=== PATIENT | female | born 1985 | race Caucasian/White ===

== ENCOUNTER 2019-01-30 09:30 | Inpatient (IN) ==
[2019-01-30] MEDS ORDERED: TYLENOL PO PRN (10:10)
[2019-01-30] MEDS ORDERED: DUONEB (A & A) INH PRN (10:14)
[2019-01-30] MEDS ORDERED: VANCOMYCIN IV PER PHARMACY MISC SCH (10:30)
--- NOTE | 2019-01-30 10:38 | Diag Imaging Result Doc PS360 ---
CHEST-PORTABLE - 01/30/2019 INDICATION: Pneumonia COMPARISON: None FINDINGS: There are moderate alveolar infiltrates in the right upper lobe and right base. Heart size is normal. Pulmonary vascularity is somewhat distended. No pneumothorax or pleural effusion. IMPRESSION: Infiltrates in the right upper lobe and right lung base consistent with pneumonia. Electronically signed by Eleazar Champagne 01/30/2019 10:36 AM
[2019-01-30 11:05] LABS: BASO# 0.11 X1000 (0.0-0.2); BASO% 1.2 % (0.0-0.8); EOS# 0.08 X1000 (0.0-0.7); EOS% 0.9 % (0.0-10.0); HEMATOCRIT 40.1 % (37.0-47.0); IMM GRAN# 0.02 X1000 (0.0-0.04); IMM GRAN% 0.2 % (0.0-0.5); LYMPH# 1.75 X1000 (1.2-3.4); LYMPH% 19.5 % (20.5-51.1); MCH 29.7 PG (27-31); MCHC 32.4 g/dL (33-37); MCV 91.8 FL (81-99); MONO# 1.59 X1000 (0.11-0.59); MONO% 17.7 % (1.7-9.3); MPV 10.4 FL (7.4-10.4); NEUT# 5.44 X1000 (1.4-6.5); NEUT% 60.5 % (42.2-75.2); PLT 286 X1000 (130-400); RBC 4.37 XMIL (4.2-5.4); RDW 14.4 % (11.5-14.5); WBC 8.99 X1000 (4.8-10.8)
[2019-01-30] MEDS: MAXIPIME 2 GM in NS 100 ML IV SCH ×2 (11:13→22:50)
[2019-01-30] MEDS: NS 1,000 ML IV SCH (11:13)
[2019-01-30 11:26] LABS: AGAP 11; ALB/GLOB RATIO 0.7; ALBUMIN 3.1 g/dL (3.5-5.0); ALKALINE PHOSPHATASE 66 U/L (32-104); BUN 17 mg/dL (8-22); CALCIUM 8.9 mg/dL (8.8-10.2); CHLORIDE 102 mmol/L (98-107); COSMO 282; CREATININE 0.7 mg/dL (0.5-0.9); ESTIMATED GFR > 60; GLUCOSE 110 mg/dL (70-104); GOT 31 U/L (10-30); GPT 46 U/L (10-36); POTASSIUM 4.1 mmol/L (3.5-5.1); SODIUM 140 mmol/L (136-145); TCO2 27 mmol/L (25-35); TOTAL PROTEIN 7.3 g/dL (6.3-8.3)
[2019-01-30] MEDS ORDERED: OFIRMEV 1000 MG/ISOTONIC SOLN 1,000 MG/100 ML BOTTLE IV PRN (11:26)
[2019-01-30] MEDS ORDERED: VANCOMYCIN 2 GM in NS 500 ML IV SCH (13:00)
[2019-01-30] MEDS: MOTRIN LIQUID PO PRN ×2 (13:12→22:55)
[2019-01-30] MEDS: DUONEB (A & A) INH SCH ×4 (13:24→23:10)
--- NOTE | 2019-01-30 13:26 | HISTORY AND PHYSICAL ---
CHIEF COMPLAINT: Direct admit from Dr. Blanc's office and failed outpatient treatment of pneumonia. HISTORY OF PRESENT ILLNESS: Ms. Alexandra is a 33-year-old female with a history of Down's syndrome, morbid obesity, obstructive sleep apnea, and frequent bouts of pneumonia. She started with symptoms of sinus infection on Sunday, and went and seen her PCP, Dr. Donta Ernst. They are not concierges. She was sent home on cefdinir. However, she continued to spike a fever yesterday of 102. They called Dr. Blanc' office today. She was admitted for failed outpatient treatment of pneumonia. Given her history of MRSA, they have started her on vancomycin and cefepime. She reports a positive productive cough and yellowish sputum. Positive for wheezing, and no cardiac type chest pain, some shortness of breath associated with the pneumonia. No chills, syncope or dizziness. No nausea, vomiting, or diarrhea. REVIEW OF SYSTEMS: Twelve-point review of systems completely negative except for those mentioned in HPI. PAST MEDICAL HISTORY: 1. Down's syndrome. 2. Frequent bouts of pneumonia. 3. Morbid obesity. 4. Lower extremity edema secondary to varicose vein issues. 5. Borderline diabetes. PAST SURGICAL HISTORY: 1. Colonoscopy. 2. Eye surgery. 3. T A. 4. I D to right middle finger by Dr. Cervantes. 5. Radiofrequency ablations of the left great saphenous vein. 6. Multiple lobectomies performed by Dr. Cervantes. ALLERGIES: Sulfa. HOME MEDICATIONS: Have not been verified. PHYSICAL EXAMINATION: VITAL SIGNS: Temperature 99.4 degrees, heart rate 101, respirations 18, blood pressure 118/60, and O2 is 96% on room air. GENERAL: Ms. Alexandra is a 33-year-old female who is sitting up in bed in no acute distress. However, she states she is scared, and we did assured her that we would take good care of her. Mom is currently at bedside. HEENT: Atraumatic, normocephalic. PERRL. NECK: Supple. Trachea midline. CARDIOVASCULAR: S1, S2 appreciated. No murmurs, gallops, or rubs noted. RESPIRATORY: Lung sounds clear bilaterally. I did appreciate some expiratory wheezes. GI: Abdomen was soft, nontender, and nondistended. Positive bowel sounds. EXTREMITIES: Lower extremities bilaterally, trace edema. NEUROLOGIC: Patient is awake, alert, and oriented, follows commands, and answers all questions appropriately. Moves all extremities. LABORATORY DATA: Pending. DIAGNOSTIC DATA: Chest x-ray shows infiltrates in the right upper lobe and right lung base consistent with pneumonia. ASSESSMENT AND PLAN: 1. Failed outpatient treatment for pneumonia. Chest x-ray reveals infiltrates in the right upper lobe, and right lung base consistent with pneumonia. She was a direct admit from Dr. Blanc. He has placed her on vancomycin and cefepime. We will continue with the IV Tylenol and ibuprofen. Patient has an aversion to taking pills, however, she has no swallowing issue. Mother states for years they have tried to get her to take pills and she is unable to tolerate. 2. Down syndrome, aware. 3. Frequent bouts of pneumonia. Aware. 4. Further recommendation to follow physician evaluation, laboratory and diagnostic data. Dictated by QUIRINO Melissa for Jose Armando Pérez MD Addendum: Patient seen and examined by myself. Agree with [employer] note. It reflects my assessment and plan. Patient is being admitted to hospital for peumonia. She was sent to hospital by Dr. Sandeep Blanc. He will be managing antibiotics. Will check CBC daily. cc: DO Sandeep Norton MD Cesar Garcia-Rodriguez, MD MTDD
--- NOTE | 2019-01-30 15:40 | INFECTIOUS DISEASE CONSULT REP ---
DATE: 01/30/2019 CONCLUSION: Ms. Alexandra has been directly admitted for a right-sided pneumonia. RECOMMENDATIONS: We have started her on cefepime 2 g IV every 12 hours and Zyvox 600 mg IV every 12 hours for broad-spectrum coverage. Due to the fact that she has had multiple bouts of pneumonia in the past years, we will go ahead and check her immunoglobulin levels for a possible deficiency. DISCUSSION: Ms. Alexandra is a very pleasant, Down syndrome patient, whose mom is at the bedside. The patient is highly functional and is able to tell me how she is feeling. I saw her this morning in the office, along with Dr. Blanc, for complaints of fever up to 102, congestion, cough with clear/yellow sputum, wheezing and shortness of breath. Dr. Nafisa Ernst put her on cefdinir on Sunday, at which time she had a white blood cell count of 14,000. As of yesterday her temperature was still 102, with a report of worsening of her symptoms. She has been direct admitted to the hospital after failed outpatient treatment. REVIEW OF SYSTEMS: Constitutional: She has had 102 fever at home with decreased appetite and increased somnolence. Her mother states she has been sleeping all but 3 or 4 hours per day. Patient is morbidly obese. HEENT: She has some decrease in her hearing, as well as a mild decrease in vision, however she does not like to wear her glasses. She does complain of temporal headaches at times. Endocrine: History of concern for Estevan's thyroiditis and borderline diabetes; however, she does not have medication prescribed for either, and does not check blood sugars. Cardiovascular: No chest pain or palpitations. Respiratory: She has had some shortness of breath with a cough and yellow clear sputum. She does notice wheezing at times. GI: She denies any nausea, vomiting, diarrhea or abdominal pain. Musculoskeletal: No history of arthritis or joint pain. She does have calf pain bilaterally to the area of some vein varicosities. Chronic venous insufficiency. Psych: No anxiety or depression. Neurologic: No seizures, stroke or mini stroke. The patient has Down syndrome. PAST MEDICAL HISTORY: Down syndrome, morbid obesity, varicose veins, polycystic ovarian syndrome, borderline diabetes mellitus, multiple bouts of ear infections and pneumonia. PAST SURGICAL HISTORY: Removal of an intestinal blockage at 3-days old, colonoscopy due to abdominal pain, repair of ingrown eye lashes, tonsillectomy and adenoidectomy, I and D of the right middle finger due to a streptococcal infection, ablations to varicose veins bilaterally, nine sets of tubes in her ears. LABORATORY AND X-RAY: Today her white count was 8.99, hemoglobin 13, platelet count 286,000. Creatinine 0.7. Estimated GFR is greater than 60. Total bilirubin 0.30, AST 31, ALT 46 alkaline phosphatase 66. Blood cultures have been drawn and are pending. Chest x-ray today shows infiltrates in the right upper lobe and right lung base consistent with pneumonia. INFECTIOUS DISEASE: The patient, according to her mother, has had pneumonia 8 or 9 times in past years, 3 or 4 of those times required hospitalization. She has had a urinary tract infection many years ago, but a check by catheter insertion for urinary tract infection by Dr. Montana, in the last year, showed no UTI. The patient has been told she is a MRSA carrier. SOCIAL HISTORY: The patient lives at home with her mom. She has no history of tobacco or alcohol use or illicit drugs. FAMILY HISTORY: She has no brothers and sisters. Her father's history is unknown. Her mother has asthma, diabetes and migraine headaches. ALLERGIES: Include a rash with sulfa drugs and morphine. HOME MEDICATIONS: Include cefdinir, liquid Tylenol and liquid ibuprofen. It is important to note that the patient is unable to swallow pills due to an exaggerated gag reflex. PHYSICAL EXAMINATION: Vital Signs: Temperature is 98.9 degrees, pulse rate 100, blood pressure 139/73, O2 saturation is 94% on room air. General: This is a morbidly obese, acutely ill-appearing female. She is sitting up in the bed, currently drowsy and lethargic, but arousable and appropriate. HEENT: Atraumatic, normocephalic. Oral mucous membranes are pink and moist with some mild erythema to the back of the oral vestibule with some mild white exudate as well. Conjunctivae are pink. Neck: Supple. Trachea is midline. Cardiovascular: Heart rate is regular. S1, S2 noted. Respiratory: Lung sounds have wheezes noted in the upper lobes bilaterally, diminished in the bases. Mild work of breathing is noted. Abdomen: Soft, round, obese and nontender. Bowel sounds are active. Extremities: There is a trace amount of lower extremity edema noted bilaterally with some scattered varicose veins, which are painful to touch. Neurologic: She is drowsy and lethargic, but arouses and answers questions appropriately, and is oriented. She is able to ambulate independently. Thank you for allowing us to see Ms. Alexandra. Dictated by QUIRINO Concepcion for Sandeep Blanc MD cc: Sandeep Blanc MD [facility]
[2019-01-30] MEDS: ZYVOX 600 MG/D5W 600 MG/300 ML IVPB IV SCH (16:58)
[2019-01-31] MEDS: ZYVOX 600 MG/D5W 600 MG/300 ML IVPB IV SCH ×2 (03:54→15:14)
[2019-01-31] MEDS: DUONEB (A & A) INH SCH ×6 (05:11→23:10)
--- NOTE | 2019-01-31 06:34 | Diag Imaging Result Doc PS360 ---
CHEST-PORTABLE - 01/31/2019 INDICATION: Pneumonia COMPARISON: 01/30/2019 FINDINGS: Stable patchy infiltrates in the right upper lobe and right lung base. Stable cardiomegaly and pulmonary vascular congestion. No edema. No large pleural effusion. IMPRESSION: Multilobar right-sided pneumonia. No change from prior. Electronically signed by Eleazar Champagne 01/31/2019 6:32 AM
[2019-01-31 07:09] LABS: BASO# 0.05 X1000 (0.0-0.2); BASO% 0.5 % (0.0-0.8); EOS# 0.08 X1000 (0.0-0.7); EOS% 0.9 % (0.0-10.0); HEMOGLOBIN 12.1 g/dL (12.0-16.0); IMM GRAN# 0.02 X1000 (0.0-0.04); IMM GRAN% 0.2 % (0.0-0.5); LYMPH# 1.76 X1000 (1.2-3.4); LYMPH% 18.9 % (20.5-51.1); MCH 29.7 PG (27-31); MCHC 32.7 g/dL (33-37); MCV 90.7 FL (81-99); MONO% 10.7 % (1.7-9.3); MPV 10.5 FL (7.4-10.4); NEUT% 68.8 % (42.2-75.2); PLT 303 X1000 (130-400); RBC 4.08 XMIL (4.2-5.4); RDW 14.4 % (11.5-14.5); WBC 9.31 X1000 (4.8-10.8)
[2019-01-31 07:37] LABS: AGAP 12; ALB/GLOB RATIO 0.7; ALBUMIN 2.9 g/dL (3.5-5.0); ALKALINE PHOSPHATASE 63 U/L (32-104); BUN 15 mg/dL (8-22); CALCIUM 8.6 mg/dL (8.8-10.2); CHLORIDE 102 mmol/L (98-107); COSMO 279; CREATININE 0.5 mg/dL (0.5-0.9); ESTIMATED GFR > 60; GLUCOSE 105 mg/dL (70-104); GOT 27 U/L (10-30); GPT 40 U/L (10-36); POTASSIUM 3.4 mmol/L (3.5-5.1); SODIUM 139 mmol/L (136-145); TCO2 25 mmol/L (25-35); TOTAL BILIRUBIN 0.24 mg/dL (0.20-1.00); TOTAL PROTEIN 6.9 g/dL (6.3-8.3)
[2019-01-31] MEDS: MOTRIN LIQUID PO PRN ×2 (10:33→21:27)
[2019-01-31] MEDS: MAXIPIME 2 GM in NS 100 ML IV SCH ×2 (10:34→23:35)
[2019-01-31] MEDS: NS 1,000 ML IV SCH ×2 (10:53→15:14)
--- NOTE | 2019-01-31 11:13 | PROGRESS NOTE ---
DATE: 01/31/2019 SUBJECTIVE: Patient reports feeling fine. Denies any fever or chills. OBJECTIVE: Vital Signs: Temperature 98.1 degrees, heart rate 103, respiratory rate 18, blood pressure 151/80, O2 saturation 95% on room air. General: This is a pleasant, 33-year-old, female with history of Down's syndrome lying in bed, in no acute distress. Cardiovascular: S1, S2 heard. No murmurs, gallops, or rubs. Regular rate and rhythm. Respiratory: Minimal expiratory wheezing noted in both pulmonary bases. Patient not using any accessory muscles. Abdomen: Soft, nontender to palpation. Bowel sounds present. No organomegaly. Extremities: Peripheral pulses present in both legs. No clubbing or cyanosis. Trace edema in both lower extremities. Neurological: Patient is awake. Follows commands. LABORATORY DATA: CBC and BMP unremarkable except potassium 3.4. ASSESSMENT AND PLAN: 1. Failure of outpatient treatment for pneumonia. Dr. Blanc has sent this patient to the hospital because he failed treatment with Cefdinir. She was started on Zyvox and cefepime. We will continue with same management. Patient will be discharged once he is cleared by Infectious Disease. 2. Down syndrome. We will continue with same management. 3. Disposition. We are following the lead from Infectious Disease. Addendum: I have talked with Dr. Blanc and we agreed to keep patient over the weekend and she will be most likely discharged next Sunday. cc: Jose Armando Pérez MD MTDD
--- NOTE | 2019-01-31 14:38 | INFECTIOUS DISEASE PROGRESS NO ---
DATE: 01/31/2019 PRESENT ILLNESS: The patient has a right lung pneumonia. MEDICATIONS: The patient is receiving a combination of Zyvox and cefepime. PHYSICAL EXAMINATION: Vital Signs: Temperature is 97.6 degrees, pulse 103, respirations 18, blood pressure 151/80. General: This is an obese, young female. She is in no acute distress and when I was in when I was in the room, she did not cough either. Head/eyes/ears/nose/throat: Patient has Down's syndrome. There is no drainage coming from the nose or ears. She does not have any white patches on her tongue she can hear my spoken words and see near objects. Neck: No meningismus. Lungs: Showed rales in the right lung. Cardiovascular: Heart rate is regular. Abdomen: Soft and nontender. Neurologic: The patient is alert. She can move her extremities. There is no tremor. LAB AND X-RAY: Chest x-ray shows right lung pneumonia. CBC shows a white count of 9310, hemoglobin 12.1, and platelet count is 303,000. ALT was 40. IgG and IgA are normal. Creatinine is 0.5, GFR is greater than 60. ASSESSMENT AND PLAN: Patient has pneumonia. The plan is to continue with Zyvox and cefepime pending the results of the patient's blood cultures. The patient has a history of recurrent infections. However, her IgG and IgA levels were completely normal. COMORBIDITIES: Her comorbidities are that she unfortunately still gets infections even though her immunoglobulin levels are normal. The patient has borderline diabetes mellitus and this may be involved in her having recurrent infections also. cc: Sandeep Blanc MD
[2019-02-01] MEDS: ZYVOX 600 MG/D5W 600 MG/300 ML IVPB IV SCH ×2 (03:31→16:04)
[2019-02-01] MEDS: DUONEB (A & A) INH SCH ×6 (03:34→23:36)
[2019-02-01] MEDS: MOTRIN LIQUID PO PRN ×2 (10:15→22:32)
[2019-02-01] MEDS: MAXIPIME 2 GM in NS 100 ML IV SCH ×2 (11:54→22:32)
[2019-02-01] MEDS: NS 1,000 ML IV SCH (13:20)
--- NOTE | 2019-02-01 15:17 | PROGRESS NOTE ---
DATE: 02/01/2019 SUBJECTIVE: Patient has no major complaints. She is fast asleep. Apparently, she did not sleep very well last night. OBJECTIVE DATA: 130/59, heart rate 108, respiratory rate 20, temperature 98.3 degrees, 100% on room air.Cardiovascular: Tachycardic. Pulmonary: Bilateral breath sounds. Clear to auscultation. GI: Soft, nontender, nondistended. Report for immunoglobulins are normal. PROBLEM LIST: 1. Multilobar pneumonia, failing outpatient therapy, currently on Zyvox and cefepime. ID is following. Will likely need another day or 2 treatment. We will repeat chest x-ray tomorrow. 2. Down syndrome with intellectual impairment. We will continue similar management. We will continue pulmonary toilet and follow closely. DISPOSITION: Pending clinical status but anticipate discharge in the next couple days. cc: Melvin Adames MD
[2019-02-01] MEDS: MUCOMYST 20% INH SCH (19:14)
[2019-02-02] MEDS: DUONEB (A & A) INH SCH ×4 (03:13→15:33)
[2019-02-02] MEDS: ZYVOX 600 MG/D5W 600 MG/300 ML IVPB IV SCH (03:55)
[2019-02-02] MEDS ORDERED: LOVENOX SUBQ SCH (06:00)
[2019-02-02 07:49] LABS: BASO# 0.06 X1000 (0.0-0.2); BASO% 0.7 % (0.0-0.8); EOS# 0.32 X1000 (0.0-0.7); EOS% 3.6 % (0.0-10.0); HEMATOCRIT 35.9 % (37.0-47.0); HEMOGLOBIN 11.6 g/dL (12.0-16.0); IMM GRAN# 0.06 X1000 (0.0-0.04); IMM GRAN% 0.7 % (0.0-0.5); LYMPH# 1.93 X1000 (1.2-3.4); LYMPH% 21.6 % (20.5-51.1); MCH 29.7 PG (27-31); MCHC 32.3 g/dL (33-37); MCV 92.1 FL (81-99); MONO# 0.62 X1000 (0.11-0.59); MONO% 6.9 % (1.7-9.3); MPV 10.3 FL (7.4-10.4); NEUT# 5.94 X1000 (1.4-6.5); NEUT% 66.5 % (42.2-75.2); PLT 317 X1000 (130-400); RDW 14.6 % (11.5-14.5); WBC 8.93 X1000 (4.8-10.8)
[2019-02-02] MEDS: MUCOMYST 20% INH SCH (07:57)
[2019-02-02 08:05] LABS: AGAP 10; BUN 11 mg/dL (8-22); CALCIUM 8.8 mg/dL (8.8-10.2); CHLORIDE 105 mmol/L (98-107); COSMO 280; CREATININE 0.5 mg/dL (0.5-0.9); ESTIMATED GFR > 60; GLUCOSE 92 mg/dL (70-104); POTASSIUM 3.8 mmol/L (3.5-5.1); SODIUM 141 mmol/L (136-145); TCO2 26 mmol/L (25-35)
--- NOTE | 2019-02-02 08:31 | Diag Imaging Result Doc PS360 ---
EXAM: CHEST-2 VIEWS 02/02/2019 HISTORY: hypoxia TECHNIQUE: PA and lateral chest COMMENT: There are perihilar opacities bilaterally particularly in the right upper lobe. This was also the case at the time the previous study of 01/31/2019. IMPRESSION: Bilateral bronchopneumonia. Electronically signed by Dandre Frankel 02/02/2019 8:28 AM
[2019-02-02] MEDS: MAXIPIME 2 GM in NS 100 ML IV SCH (12:08)
[2019-02-02] MEDS: MOTRIN LIQUID PO PRN (12:59)
[2019-02-02] MEDS: NS 1,000 ML IV SCH (12:59)
--- NOTE | 2019-02-02 15:29 | INFECTIOUS DISEASE PROGRESS NO ---
DATE: 02/02/2019 PRESENT ILLNESS: The patient has bilateral pneumonia. MEDICATIONS: Patient is on combination of Zyvox and cefepime. PHYSICAL EXAMINATION: Vital Signs: Temperature is 98, pulse 104, respirations 18, blood pressure 135/70. General: This is an obese, young female. She is in no acute distress. Head/eyes/ears/nose/throat: She can hear my spoken words and see near objects. She does not have any white patches on her tongue. Neck: No meningismus. Lungs: Clear to auscultation. Cardiovascular: Heart rate is regular. Abdomen: Soft and nontender. Neurologic: The patient is alert. She can move her extremities. There is no tremor. LAB AND X-RAY: Chest x-ray shows bilateral pneumonia. Blood cultures are negative. Immunoglobulin A and G levels were normal. Creatinine is 0.5. GFR is greater than 60. CBC shows a white count of 8930, hemoglobin 11.6, and platelet count 317,000. ASSESSMENT AND PLAN: Patient has pneumonia. The plan is send the patient home on Levaquin 750 mg p.o. daily for 10 days. I have requested that the patient come to my office in 10 days at which time she will be examined, a repeat chest x-ray will be done and the patient will have a creatinine drawn. Some of the side effects of Levaquin including rash, diarrhea, seizures, and tendon rupture, have been explained to the patient's mother who agrees with treatment. COMORBIDITIES: Patient does have a history of getting recurrent infections. However, I was unable to find a definite reason for it. Her immunoglobulin levels as mentioned above are normal. She is a borderline diabetic and possibly this is causing her to get recurrent infections. The patient also has Down's syndrome. cc: [facility]
[2019-02-02 17:38] VITALS: BP 142/63
[2019-02-02] MEDS ORDERED: LEVAQUIN 500 MG/D5W 500 MG/100 ML IVPB IV ONE (17:43)
--- NOTE | 2019-02-02 18:34 | DISCHARGE SUMMARY ---
ADMISSION DATE: 01/30/2019 DISCHARGE DATE: 02/02/2019 DISCHARGE DIAGNOSIS: Pneumonia, failing outpatient therapy. DISCHARGE DIAGNOSIS: Pneumonia, failing therapy. CONSULTATIONS: Dr. Blanc. Briefly is 33-year-old female with Down syndrome who presents with pneumonia. She had been on cefdinir, had a fever of 102. She was placed on vancomycin and cefepime and blood cultures were obtained but they were negative. Dr. Blanc adjusted her medications to cefepime and Zyvox. She slowly clinically improved. On the her x-ray showed stable infiltrates but she had not had any more fevers. Her breathing had improved. Her white count was normal. Her immunoglobulin levels were normal except for IgM was a little low but plan was to discharge her. Dr. Blanc evaluated her and felt that she could be discharged on Levaquin and we went ahead and did that so I am going to just adjust the Levaquin to a liquid form because apparently she cannot take p.o. Levaquin so we will have to do a liquid form of the Levaquin and see how she does. DISCHARGE CONDITION: Stable. TIME SPENT: 32 minutes. cc: MD Dr. Klever Brown Dr.
== END 2019-02-02 18:41 | disposition home or self-care (01) | DRG 194 ==
LOC: SUATTDRO 09:30 → DIRADM 09:30 → 3N 09:50
PROVIDERS: ATTEND Internal Medicine
CPT/HCPCS: 71010; 71020; 71045; 71046; 80048; 80053; 82784; 83605; 85025; 87040; 94640; 94760; 94761; A9270; J0692; J1650; J2020; J3370; J7030; J7040